=== PATIENT | female | born 1970 | race Caucasian/White ===

== ENCOUNTER 2020-12-08 09:34 | Emergency (ER) | payer MEDICAID ==
[~2020-12-08] VITALS: Ht 170.2 cm; Wt 81.6 kg
[2020-12-08 11:21] VITALS: BP 128/86
[2020-12-08] MEDS ORDERED: HYDROcodone-ACET 10/325MG TAB PO ONE (12:00)
== END 2020-12-08 13:31 | disposition home or self-care (01) ==
LOC: ER 09:34
DX: S39.012A Strain of muscle, fascia and tendon of lower back, initial encounter (principal); G96.191 Perineural cyst; I10 Essential (primary) hypertension; F17.210 Nicotine dependence, cigarettes, uncomplicated; X58.XXXA Exposure to other specified factors, initial encounter; Y93.89 Activity, other specified; Y92.89 Other specified places as the place of occurrence of the external cause; Y99.8 Other external cause status
CPT/HCPCS: 72131; 93005